=== PATIENT | male | born 1965 | race Caucasian/White ===

== ENCOUNTER 2023-04-13 11:45 | Emergency (ER) | payer BC ==
[~2023-04-13] VITALS: Ht 172.7 cm; Wt 92.4 kg
[2023-04-13 12:17] VITALS: BP 143/85; PULSE 78; RESP 18; TEMP 98; O2SAT 98
[2023-04-13 14:31] LABS: D-DIMER 0.28 MG/L FEU (0-0.50)
[2023-04-13] MEDS ORDERED: METH-797 PO (14:45)
== END 2023-04-13 15:19 | disposition home or self-care (01) ==
LOC: ER 11:46
DX: S86.911A Strain of unspecified muscle(s) and tendon(s) at lower leg level, right leg, initial encounter (principal); R22.41 Localized swelling, mass and lump, right lower limb; X58.XXXA Exposure to other specified factors, initial encounter; Y93.89 Activity, other specified; Y92.89 Other specified places as the place of occurrence of the external cause; Y99.8 Other external cause status
CPT/HCPCS: 36415; 85379; 99283